=== PATIENT | female | born 1945 | race Caucasian/White ===

== ENCOUNTER → 2016-11-20 | Outpatient (CLI) | payer MEDICARE, BC ==
[~2016-11-20] MED LIST: DIOVAN160 MG PO; NOLVADEX20 MG PO; TOPROL XL50 MG PO; ZOMETA4 MG/5 ML IV
== END ==
LOC: COL.RAD 12:01
DX: C50.412 Malignant neoplasm of upper-outer quadrant of left female breast (principal); Z79.899 Other long term (current) drug therapy; Z78.0 Asymptomatic menopausal state
CPT/HCPCS: A9560

== ENCOUNTER → 2016-11-22 | Outpatient (CLI) | payer MEDICARE, BC | LOC: MC.RAD 09:14 | DX: Z12.31 Encounter for screening mammogram for malignant neoplasm of breast (principal); Z85.3 Personal history of malignant neoplasm of breast; Z90.12 Acquired absence of left breast and nipple | CPT/HCPCS: G0202 ==

== ENCOUNTER → 2016-11-22 | Outpatient (CLI) | payer MEDICARE, BC ==
[2016-11-22 09:01] LABS: BASO # 0.1 (0.0-0.2); BASO % 0.8 % (0.0-2.0); EOS # 0.2 (0.0-0.7); EOS % 2.7 % (0-4.0); GRAN % 34.5 % (42.2-75.2); HEMOGLOBIN 12.1 g/dl (12.5-16.0); LYMPH # 3.3 (1.2-3.4); LYMPH % 55.7 % (20.0-51.0); MEAN CELL VOLUME 93 fl (80.0-100.0); MEAN CORPUSCULAR HEMOGLOBIN 31 pg (27.0-31.0); MEAN CORPUSCULAR HGB CONC 33 g/dl (33.0-37.0); MEAN PLATELET VOLUME 9.9 fl (7.4-10.4); MONO # 0.4 (0.1-0.6); MONO % 6.1 % (1.7-9.3); PLATELET COUNT 188 K/mm3 (130-400); RED BLOOD COUNT 3.96 M/mm3 (4.10-5.30); REDCELL DISTRIBUTION WIDTH-CV 13.2 % (11.5-14.5); WHITE BLOOD COUNT 5.9 K/mm3 (4.8-10.8)
[2016-11-22 09:06] LABS: HEMATOCRIT 36.8 % (37.0-47.0)
[2016-11-22 09:16] LABS: ADJUSTED CALCIUM 9.2 mg/dL (8.4-10.2); ALBUMIN 4.3 gm/dL (3.5-5.0); BILIRUBIN,TOTAL 0.5 mg/dL (0.0-1.0); CALCIUM 9.4 mg/dL (8.4-10.2); CREATININE, serum 1.36 mg/dL (0.52-1.25); POTASSIUM 3.8 mmol/L (3.4-5.0); TOTAL PROTEIN 7.8 gm/dL (6.4-8.2)
== END ==
LOC: COL.LAB 08:34
DX: C50.412 Malignant neoplasm of upper-outer quadrant of left female breast (principal); Z17.0 Estrogen receptor positive status [ER+]; C79.51 Secondary malignant neoplasm of bone; C78.7 Secondary malignant neoplasm of liver and intrahepatic bile duct
CPT/HCPCS: G0202

== ENCOUNTER → 2017-05-21 | Outpatient (CLI) | payer MEDICARE, BC ==
[2017-05-21 13:10] LABS: BASO % 0.6 % (0.0-2.0); EOS # 0.1 (0.0-0.7); EOS % 2.4 % (0-4.0); GRAN # 1.9 (1.4-6.5); LYMPH # 2.6 (1.2-3.4); LYMPH % 52.4 % (20.0-51.0); MEAN CELL VOLUME 93 fl (80.0-100.0); MEAN CORPUSCULAR HGB CONC 33 g/dl (33.0-37.0); MEAN PLATELET VOLUME 10.1 fl (7.4-10.4); MONO # 0.3 (0.1-0.6); MONO % 5.4 % (1.7-9.3); PLATELET COUNT 171 K/mm3 (130-400); RED BLOOD COUNT 3.65 M/mm3 (4.10-5.30); REDCELL DISTRIBUTION WIDTH-CV 13.4 % (11.5-14.5)
[2017-05-21 13:12] LABS: HEMATOCRIT 33.8 % (37.0-47.0); HEMOGLOBIN 11.3 g/dl (12.5-16.0); MEAN CORPUSCULAR HEMOGLOBIN 31 pg (27.0-31.0)
[2017-05-21 13:25] LABS: ADJUSTED CALCIUM 9.3 mg/dL (8.4-10.2); BILIRUBIN,TOTAL 0.6 mg/dL (0.0-1.0); CALCIUM 9.3 mg/dL (8.4-10.2); CREATININE, serum 1.24 mg/dL (0.52-1.25); POTASSIUM 3.5 mmol/L (3.4-5.0); TOTAL PROTEIN 7.2 gm/dL (6.4-8.2)
== END ==
LOC: COL.RAD 07:55
PROVIDERS: Urology
DX: C79.51 Secondary malignant neoplasm of bone (principal); C78.7 Secondary malignant neoplasm of liver and intrahepatic bile duct; C50.412 Malignant neoplasm of upper-outer quadrant of left female breast; Z79.899 Other long term (current) drug therapy; Z78.0 Asymptomatic menopausal state; Z17.0 Estrogen receptor positive status [ER+]; Z51.81 Encounter for therapeutic drug level monitoring
CPT/HCPCS: A9560

== ENCOUNTER → 2017-11-16 | Outpatient (CLI) | payer MEDICARE, BC | LOC: EDBD → COL.RAD 11:11 | DX: C50.412 Malignant neoplasm of upper-outer quadrant of left female breast (principal); Z79.899 Other long term (current) drug therapy | CPT/HCPCS: A9560 ==

== ENCOUNTER 2018-04-12 10:21 | Outpatient (CLI) | payer MEDICARE, BC ==
[~2018-04-12] VITALS: Ht 175.3 cm; Wt 78.1 kg
[2018-04-12 10:51] VITALS: BP 137/66; BP 137/668; PULSE 87; TEMP 98
[2018-04-12 11:57] VITALS: BP 136/65; PULSE 88; TEMP 979.4
[2018-04-12 12:32] LABS: HEMOGLOBIN 10.6 g/dl (12.5-16.0); MEAN CELL VOLUME 92 fl (80.0-100.0); MEAN CORPUSCULAR HEMOGLOBIN 31 pg (27.0-31.0); MEAN CORPUSCULAR HGB CONC 34 g/dl (33.0-37.0); PLATELET COUNT 169 K/mm3 (130-400); RED BLOOD COUNT 3.45 M/mm3 (4.10-5.30); REDCELL DISTRIBUTION WIDTH-CV 13.1 % (11.5-14.5)
[2018-04-12 12:34] LABS: HEMATOCRIT 31.6 % (37.0-47.0)
[2018-04-12 12:41] LABS: CALCIUM 9.4 mg/dL (8.4-10.2); CREATININE, serum 1.66 mg/dL (0.52-1.25)
== END 2018-04-12 14:54 | disposition home or self-care (01) ==
LOC: EUO 10:21
PROVIDERS: Internal Medicine
DX: N17.9 Acute kidney failure, unspecified (principal)
CPT/HCPCS: J1644; J7030

== ENCOUNTER → 2018-11-04 | Outpatient (CLI) | payer MEDICARE, BC | LOC: MC.RAD 09:20 | DX: C79.51 Secondary malignant neoplasm of bone (principal); C78.7 Secondary malignant neoplasm of liver and intrahepatic bile duct; C50.412 Malignant neoplasm of upper-outer quadrant of left female breast; Z17.0 Estrogen receptor positive status [ER+] | CPT/HCPCS: G0279 ==

== ENCOUNTER → 2018-12-09 | Outpatient (CLI) | payer MEDICARE, BC ==
[2018-12-09 12:46] LABS: BASO % 0.3 % (0.0-2.0); EOS # 0.1 (0.0-0.7); EOS % 1.5 % (0-4.0); GRAN # 2.2 (1.4-6.5); GRAN % 31.5 % (42.2-75.2); HEMATOCRIT 34.6 % (37.0-47.0); HEMOGLOBIN 11.5 g/dl (12.5-16.0); LYMPH # 4.2 (1.2-3.4); LYMPH % 61.5 % (20.0-51.0); MEAN CELL VOLUME 93 fl (80.0-100.0); MEAN CORPUSCULAR HEMOGLOBIN 31 pg (27.0-31.0); MEAN CORPUSCULAR HGB CONC 33 g/dl (33.0-37.0); MEAN PLATELET VOLUME 9.4 fl (7.4-10.4); MONO # 0.3 (0.1-0.6); MONO % 4.9 % (1.7-9.3); PLATELET COUNT 170 K/mm3 (130-400); RED BLOOD COUNT 3.73 M/mm3 (4.10-5.30)
[2018-12-09 13:13] LABS: ALBUMIN 3.8 gm/dL (3.5-5.0); BILIRUBIN,TOTAL 0.3 mg/dL (0.0-1.0); CALCIUM 8.8 mg/dL (8.4-10.2); CREATININE, serum 1.33 mg/dL (0.52-1.25); POTASSIUM 3.7 mmol/L (3.4-5.0); TOTAL PROTEIN 7.1 gm/dL (6.4-8.2)
== END ==
LOC: COL.LAB 12:06 → COL.RAD 12:06
PROVIDERS: Internal Medicine Hematology & Oncology
DX: C50.412 Malignant neoplasm of upper-outer quadrant of left female breast (principal); Z79.899 Other long term (current) drug therapy
CPT/HCPCS: A9560

== ENCOUNTER → 2019-05-26 | Outpatient (CLI) | payer MEDICARE, BC ==
[2019-05-26 11:40] LABS: BASO % 0.3 % (0.0-2.0); EOS # 0.1 (0.0-0.7); EOS % 2.2 % (0-4.0); GRAN # 2.2 (1.4-6.5); GRAN % 36.9 % (42.2-75.2); HEMOGLOBIN 11.9 g/dl (12.5-16.0); LYMPH # 3.3 (1.2-3.4); LYMPH % 54.9 % (20.0-51.0); MEAN CELL VOLUME 90 fl (80.0-100.0); MEAN CORPUSCULAR HEMOGLOBIN 29 pg (27.0-31.0); MEAN CORPUSCULAR HGB CONC 32 g/dl (33.0-37.0); MEAN PLATELET VOLUME 10.2 fl (7.4-10.4); MONO # 0.3 (0.1-0.6); MONO % 5.5 % (1.7-9.3); PLATELET COUNT 171 K/mm3 (130-400); RED BLOOD COUNT 4.08 M/mm3 (4.10-5.30); REDCELL DISTRIBUTION WIDTH-CV 13.6 % (11.5-14.5)
[2019-05-26 11:53] LABS: ALBUMIN 3.7 gm/dL (3.5-5.0); BILIRUBIN,TOTAL 0.4 mg/dL (0.0-1.0); CALCIUM 9.6 mg/dL (8.4-10.2); CREATININE, serum 0.96 (0.52-1.25); TOTAL PROTEIN 6.8 gm/dL (6.4-8.2)
[2019-05-26 12:01] LABS: HEMATOCRIT 36.9 % (37.0-47.0)
== END ==
LOC: COL.RAD 11:12
PROVIDERS: Internal Medicine Hematology & Oncology
DX: C50.412 Malignant neoplasm of upper-outer quadrant of left female breast (principal); Z79.899 Other long term (current) drug therapy
CPT/HCPCS: A9560

== ENCOUNTER → 2019-11-10 | Outpatient (CLI) | payer MEDICARE, BC ==
[2019-11-10 13:10] LABS: BASO % 0.3 % (0.0-2.0); EOS # 0.2 (0.0-0.7); EOS % 2.3 % (0-4.0); GRAN # 2.2 (1.4-6.5); GRAN % 29.9 % (42.2-75.2); HEMATOCRIT 38.7 % (37.0-47.0); HEMOGLOBIN 12.7 g/dl (12.5-16.0); LYMPH # 4.6 (1.2-3.4); LYMPH % 61.8 % (20.0-51.0); MEAN CELL VOLUME 91 fl (80.0-100.0); MEAN CORPUSCULAR HEMOGLOBIN 30 pg (27.0-31.0); MEAN CORPUSCULAR HGB CONC 33 g/dl (33.0-37.0); MONO # 0.4 (0.1-0.6); MONO % 5.3 % (1.7-9.3); PLATELET COUNT 180 K/mm3 (130-400); RED BLOOD COUNT 4.24 M/mm3 (4.10-5.30); REDCELL DISTRIBUTION WIDTH-CV 13.4 % (11.5-14.5)
[2019-11-10 13:17] LABS: ALBUMIN 4.1 gm/dL (3.5-5.0); BILIRUBIN,TOTAL 0.2 mg/dL (0.0-1.0); CALCIUM 9.3 mg/dL (8.4-10.2); CREATININE, serum 1.04 (0.52-1.25); POTASSIUM 3.5 mmol/L (3.4-5.0); TOTAL PROTEIN 7.4 gm/dL (6.4-8.2)
== END ==
LOC: COL.RAD 11:04
PROVIDERS: Internal Medicine Hematology & Oncology
DX: C50.412 Malignant neoplasm of upper-outer quadrant of left female breast (principal); C79.51 Secondary malignant neoplasm of bone; C78.7 Secondary malignant neoplasm of liver and intrahepatic bile duct; Z79.899 Other long term (current) drug therapy; Z92.21 Personal history of antineoplastic chemotherapy
CPT/HCPCS: A9560

== ENCOUNTER 2020-01-20 14:03 | Inpatient (IN) | payer MEDICARE, BC ==
[~2020-01-20] VITALS: Ht 175.3 cm; Wt 75.0 kg
[2020-01-20 14:51] LABS: COLLECTION METHOD CATHETER
[2020-01-20 14:56] LABS: MUCOUS Present /lpf; PH 6 (5-8); SQUAMOUS EPITHELIAL 0-2 /hpf; URINE APPEARANCE Clear; URINE BACTERIA Rare /hpf; URINE BILIRUBIN Negative (NEGATIVE); URINE BLOOD Negative (NEGATIVE); URINE COLOR Yellow; URINE GLUCOSE Negative (NEGATIVE); URINE KETONE Negative (NEGATIVE); URINE LEUKOCYTE ESTERASE Negative (NEGATIVE); URINE NITRATE Negative (NEGATIVE); URINE PROTEIN(semi-quant) Negative (NEGATIVE); URINE RBC 0-2 /hpf; URINE UROBILINOGEN Negative (NEGATIVE)
[2020-01-20 15:23] LABS: BASO % 0.3 % (0.0-2.0); EOS % 0.3 % (0-4.0); GRAN % 48.4 % (42.2-75.2); HEMATOCRIT 37.5 % (37.0-47.0); HEMOGLOBIN 12.4 g/dl (12.5-16.0); LYMPH # 2.8 (1.2-3.4); LYMPH % 44.7 % (20.0-51.0); MEAN CELL VOLUME 93 fl (80.0-100.0); MEAN CORPUSCULAR HEMOGLOBIN 31 pg (27.0-31.0); MEAN CORPUSCULAR HGB CONC 33 g/dl (33.0-37.0); MEAN PLATELET VOLUME 10.1 fl (7.4-10.4); MONO # 0.4 (0.1-0.6); MONO % 6.1 % (1.7-9.3); PLATELET COUNT 196 K/mm3 (130-400); RED BLOOD COUNT 4.05 M/mm3 (4.10-5.30)
[2020-01-20 15:35] LABS: ALANINE AMINOTRANSFERASE 19 U/L (4-34); ALBUMIN 4.1 gm/dL (3.5-5.0); ALKALINE PHOSPHATASE 48 U/L (50-136); ANION GAP 11 mmol/L (7-16); AST,SGOT 25 U/L (15-37); BILIRUBIN,TOTAL 0.4 mg/dL (0.0-1.0); BLOOD UREA NITROGEN 20 mg/dL (7-17); CALCIUM 9.3 mg/dL (8.4-10.2); CARBON DIOXIDE 20 mmol/L (22-30); CHLORIDE 106 mmol/L (98-107); CREATININE, serum 1.42 (0.52-1.25); GLUCOSE 122 mg/dL (74-106); LIPASE 168 U/L (23-300); SODIUM 137 mmol/L (137-145); TOTAL PROTEIN 7.3 gm/dL (6.4-8.2)
[2020-01-20 15:36] LABS: C-REACTIVE PROTEIN < 0.5 mg/dL (0.0-0.9)
[2020-01-20 18:00] VITALS: BP 150/70; PULSE 88; TEMP 98.8
--- NOTE | 2020-01-20 18:57 | NUR ---
Pt arrived to room 311 at this time. She is A/O to person and place only. Pt is very pleasant but is very forgetful, has to be redirected frequently. She currently denies any pain. No SOB. Pt does report decrease in appetite and does remember the doctor talking about doing an upper scope. POC discussed with patient who verbalizes understanding. No N/V currently, she did drink some chicken broth without issues. Restricted extremity to L extremity. IVF infusing into PAC. Fall precautions in place. Pt denies any needs at this time. Call light within reach.
[2020-01-20 19:08] VITALS: BP 109/92; PULSE 83; TEMP 98.9
--- NOTE | 2020-01-20 19:20 | NUR ---
Patient assessed at this time. Alert and oriented x 4, and able to make needs known. Denies having pain and discomfort at this time. Port to chest with NS running at 150 ml/hr per orders. Site is without redness, warmth, swelling, and pain. Dressing CDI. Denies SOB and dyspnea. LS CTA. Respirations even and unlabored. HRR. Capillary refill less than 3 seconds. Non-tenting skin turgor. BSAx4. Abdomen soft and non-tender. Denies nausea and upset stomach at this time. No edema. Reminded that she will be NPO after midnight for upper GI endoscopy tomorrow. Patient not wanting to sign consent at this time. Stated that she wants to wait to talk to the physician prior to procedure. Assisted to bathroom. Due to poor vision needs one person assist. Urine clear and yellow. Patient is on high fall risk precautions. Resting in bed with call light within reach.
[2020-01-21] VITALS (7 sets, daily range): BP systolic 118–185; BP diastolic 68–94; PULSE 71–93; TEMP 97.6–98.9
--- NOTE | 2020-01-21 05:28 | NUR ---
Patient has gotten up multiple times during the night to use the bathroom. Has not been using call light, but bed alarm sounds and patient waits for staff to help her go to the bathroom. Patient states that she is feeling better, and is not having any nausea at this time, and does not want to do the upper GI endoscopy at this time. Encouraged patient to wait to make the decision until after she talks with the physician tomorrow. Patient agreeable. Notified refrigeration houseman as well. Patient voices no questions, needs, or concerns at this time. Resting in bed with call light within reach. Bed alarm on.
[2020-01-21 06:41] LABS: CALCIUM 8.6 mg/dL (8.4-10.2); CREATININE, serum 1.2 (0.52-1.25); MAGNESIUM 1.9 mg/dL (1.6-2.3); POTASSIUM 3.8 mmol/L (3.4-5.0)
--- NOTE | 2020-01-21 11:01 | NUR ---
CHRISTINA met with the patient to discuss discharge plan. The patient lives in [place] with her , Arjun (ph#[phone]). She reports independence with ADLs and has a walking stick that she uses when she goes outside. The patient's PCP is Dr. Ania Mosqueda and she receives her medications at [facility]. She reports no difficulties obtaining her meds. The patient does not have advanced directives in EMR, but she states that she does have them completed. She states that her is her DPOA-HC. The patient plans to return home with her upon discharge. No additional needs at this time.
--- NOTE | 2020-01-21 15:35 | NUR ---
SW contacted the patient's , Arjun, to review the information the patient provided to SW during intake and to discuss discharge plan. The patient has a past medical history of Alzheimer's Dementia. Arjun confirms that the patient lives with him outside of [place]. The patient's daughter, Ethel, lives two miles east of them and their other daughter, Iris, lives two miles west of them. Arjun reports that the patient has been needing more assistance with walking lately, due to not being able to see. He states that she has a cane and walker. He reports that he has been providing assistance to the patient and helps her get around. Arjun confirms that the patient's PCP is Dr. Albina Foreman and that she receives her medications at [facility]. He reports no difficulties obtaining his meds. SW discussed PT's recommendation of home with family assistance. The patient's was in agreeance to this and reports that he is ready for the patient to get back home. The patient has had some confusion while here, due to her dementia. The patient's daughter, Iris Mehta, is to come to the hospital and be with the patient while she is here. SW to continue to follow.
--- NOTE | 2020-01-21 18:03 | NUR ---
Pt has had eventful day. Earlier this morning prior to EGD, pt was slightly confused, disoriented to place, situation and couldn't state birthday, but pleasant and cooperative w/ cares. Pt states she isn't blind but unable to state number of fingers being held up or find objects in front of her. Pt on room air, denies SOB, portacath to rt/mid chest w/ NS at 75ml/hr running w/o complications. Pt denies any N/V today. Pt was NPO prior to procedure. Dr. Mcfarland in prior to EGD to explain the procedure, pt was feeling anxious and wasn't sure about it. Pt signed consent and had EGD, tolerated well. All questions answered. Post EGD, pt tolerated mechanical soft diet. Family arrived this evening prior to dinner. Daughter approved to be visitor for length of stay due to confusion and vision impairment. Pt confusion improved some over the course of the day, pt able to state birthday. Speech therapy assessed pt, swallow eval, pt did well, diet advanced to general. Pt took medications 1 at a time, tolerated well. PRN hydralazine administered per DEC for SBP that was low 180s. No other concerns expressed. pt very happy after daughter arrived.
--- NOTE | 2020-01-21 19:45 | NUR ---
Patient assessed at this time. Alert and oriented x 4, and able to make needs known. Denies having pain and discomfort at this time. Port to right chest, NS running at 75 ml/hr per orders. Denies having SOB and dyspnea. LS CTA. Respirations even and unlabored. HRR> Capillary refill less than 3 seconds. Non-tenting skin turgor. BSAx4. Abdomen soft and non-tender. Reported she ate better today. Daughter in with patient, approved by gym supervisor. Voices no questions, needs, or concerns at this time. Resting in bed with call light within reach.
--- NOTE | 2020-01-22 02:03 | NUR ---
Patient woke up complaining of nausea. Given PRN Zofran as requested at this time. Denies having any other questions, needs, or concerns at this time. Resting in bed with call light within reach.
[2020-01-22 03:09] VITALS: BP 137/54; PULSE 80; TEMP 98.8
--- NOTE | 2020-01-22 05:36 | NUR ---
Patient given scheduled Protonix. Voices that she does have some nausea at this time. Laying down helps some. Explained that next PRN Zofran can be given around 0800, and voiced understanding. NS continues to run at 75 ml/hr to port to right chest per orders. Denies having any other pain or discomfort at this time. Resting in bed with call light within reach. Daughter remains at bedside. Denies having any needs or concerns.
[2020-01-22 06:08] LABS: BASO % 0.4 % (0.0-2.0); EOS # 0.1 (0.0-0.7); GRAN # 2.9 (1.4-6.5); GRAN % 40.4 % (42.2-75.2); HEMOGLOBIN 11.4 g/dl (12.5-16.0); LYMPH # 3.7 (1.2-3.4); LYMPH % 52.6 % (20.0-51.0); MEAN CELL VOLUME 94 fl (80.0-100.0); MEAN CORPUSCULAR HEMOGLOBIN 31 pg (27.0-31.0); MEAN CORPUSCULAR HGB CONC 33 g/dl (33.0-37.0); MEAN PLATELET VOLUME 10.5 fl (7.4-10.4); MONO # 0.4 (0.1-0.6); MONO % 5.3 % (1.7-9.3); PLATELET COUNT 173 K/mm3 (130-400)
[2020-01-22 06:12] LABS: HEMATOCRIT 34.8 % (37.0-47.0)
[2020-01-22 06:20] LABS: CALCIUM 8.6 mg/dL (8.4-10.2); CREATININE, serum 1.18 (0.52-1.25); MAGNESIUM 1.9 mg/dL (1.6-2.3); POTASSIUM 3.4 mmol/L (3.4-5.0)
[2020-01-22 08:18] VITALS: BP 178/74; PULSE 86; TEMP 98.5
[2020-01-22] MEDS ORDERED: PROTONIX 40MG T40 MG PO ×3 (09:37→09:59)
--- NOTE | 2020-01-22 10:35 | NUR ---
SW attended clinical rounds. The patient's daughter, Iris, at bedside. The patient is ready to discharge today, 01/21. SW then followed up with the patient and her daughter to review discharge. SW discussed PT's recommendation of home with family assistance and OT's recommendations of home with family assistance vs home health. The patient and her daughter report that they would be interested in some home health returning home. SW provided the patient with [employer] list of home health agencies that serve [place]. The patient and her daughter chose [facility]. CHRISTINA contacted and faxed a referral to Tracey at [facility]. SW awaiting their screen.
[2020-01-22 11:41] VITALS: BP 140/52; PULSE 73; TEMP 98.1
--- NOTE | 2020-01-22 12:25 | NUR ---
First visit from the quality cloth tester. No needs right now.
--- NOTE | 2020-01-22 13:13 | NUR ---
Lester, at [facility], reports that they are able to accept the patient for services. SW to inform the patient and her daughter. The patient is to discharge today, 01/21, back home with her and home health services for PT/OT/ST/usp from [facility]. No additional needs at this time.
--- NOTE | 2020-01-22 14:00 | NUR ---
THIS NURSE DEACCESSED PORTACATH, WENT OVER DISCHARGE EDUCATION WITH HER AND DAUGHTER. NO QUESTIONS VOICED. SIGNATURES OBTAINED. FOOD BEVERAGE SERVER ESCORTED PT LISA VIA W/C.
== END 2020-01-22 13:30 | disposition home or self-care (01) | DRG 384 ==
LOC: COL.ER 14:03 → MEDICAL 16:16
PROVIDERS: Emergency Medicine; Internal Medicine; ADMIT Internal Medicine Gastroenterology
PROC: 0DB78ZX Excision of Stomach, Pylorus, Via Natural or Artificial Opening Endoscopic, Diagnostic (ICD-10-PCS; principal; 2020-01-21 09:30)
DX: K26.9 Duodenal ulcer, unspecified as acute or chronic, without hemorrhage or perforation (principal); N17.9 Acute kidney failure, unspecified; N39.0 Urinary tract infection, site not specified; E44.0 Moderate protein-calorie malnutrition; R13.10 Dysphagia, unspecified; G30.9 Alzheimer's disease, unspecified; F02.80 Dementia in other diseases classified elsewhere, unspecified severity, without behavioral disturbance, psychotic disturbance, mood disturbance, and anxiety; I10 Essential (primary) hypertension; R62.7 Adult failure to thrive; N32.81 Overactive bladder; K44.9 Diaphragmatic hernia without obstruction or gangrene; Z92.21 Personal history of antineoplastic chemotherapy; Z85.3 Personal history of malignant neoplasm of breast; Z68.24 Body mass index [BMI] 24.0-24.9, adult
CPT/HCPCS: 99222-AI; 99232-AI; 99239; J0360; J1650; J2250; J2405; J2550; J3010; J7030